=== PATIENT | male | born 1970 | race Two or more races ===

== ENCOUNTER 2017-01-24 13:21 | Emergency (ER) | payer SELFPAY ==
[2017-01-24 13:30] VITALS: BP 148/95
[2017-01-24] MEDS ORDERED: ALBUTEROL SULFATE 0.083% NEB 2.5 MG/3 ML AMPUL NEB ONE (13:51)
--- NOTE | 2017-01-24 13:57 | ER Document Report ---
HPI - HPI Patient complains to provider of: ear pain Pain Level: 4 Context: 46 yo male c/o right ear pain x 2 days. + cold s/s x several day. no fever. + cough, + wheeze Associated Symptoms: Nonproductive cough, Headache. denies: Fever, Nausea, Vomiting, Shortness of breath Exacerbated by: Denies Relieved by: Denies Similar symptoms previously: Yes Recently seen / treated by doctor: No - ROS Systems Reviewed and Negative: Yes All other systems reviewed and negative Past Medical History - General Information source: Patient - Social History Smoking Status: Current Every Day Smoker Cigarette use (# per day): Yes Smoking Education Provided: Yes - cessation recommended Frequency of alcohol use: None Drug Abuse: None Lives with: Family Family History: None - Medical History Medical History: Negative Vertical Provider Document - CONSTITUTIONAL Agree With Documented VS: Yes Exam Limitations: No Limitations General Appearance: WD/WN - uncomfortable - INFECTION CONTROL TRAVEL OUTSIDE OF THE [place] IN LAST 30 DAYS: No - HEENT HEENT: Tympanic Membrane Red - right TM erythematous, retracted, absent light reflex - NECK Neck: Normal Inspection, Supple - RESPIRATORY Respiratory: Wheezing O2 Sat by Pulse Oximetry: 95 - CARDIOVASCULAR Cardiovascular: Regular Rate, Regular Rhythm - NEURO Level of Consciousness: Awake, Alert - DERM Integumentary: Warm, Dry Course - Re-evaluation Re-evalutation: 01/24/17 13:55 physical findings c/w acute otitis media. will treat with oral antibiotic + wheezing bilat. Sat 95%. no increased work of breathing. will treat with inhaled bronchodilator 01/24/17 14:01 wheezing improved after neb treatment. I estimate there is low risk for acute coronary syndrome, repiratory failure, sepsis or meningitis this I consider the discharge disposition reasonable. The patient is agreeable with plan and stable for discharge - Vital Signs Vital signs: Temp Pulse Resp BP Pulse Ox 98 F 102 H 16 148/95 H 95 01/24/17 13:27 01/24/17 13:27 01/24/17 13:27 01/24/17 13:27 01/24/17 13:27 Discharge - Discharge Clinical Impression: Acute right otitis media, Wheezing Condition: Stable Disposition: HOME, SELF-CARE Instructions: Otitis Media ([facility]), Antibiotic Therapy ([facility]), Inhaled Bronchodilators ([facility]) Additional Instructions: I am treating your ear infection with oral antibiotics. please take all antibiotic as prescribed you may take Motrin 800mg for discomfort I am prescribing an inhaler for use as needed for wheezing please stop smoking follow up with your primary care if symptoms persist return to ER for any worsening Prescriptions: Albuterol Sulfate [Proair HFA Inhalation Aerosol 8.5 gm MDI] 1 puff IH Q4 PRN # 1 mdi PRN Reason: Amoxicillin 500 mg PO TID #21 tablet
== END 2017-01-24 14:15 | disposition home or self-care (01) ==
LOC: ER 13:21
DX: H66.91 Otitis media, unspecified, right ear (principal); R06.2 Wheezing; R51 Headache; F17.210 Nicotine dependence, cigarettes, uncomplicated
CPT/HCPCS: 94640; 99282

== ENCOUNTER 2017-01-26 20:48 | Emergency (ER) | payer SELFPAY ==
[2017-01-26 21:06] VITALS: BP 174/110
--- NOTE | 2017-01-26 22:20 | ER Document Report ---
HPI - HPI Pain Level: 4 Notes: Patient is a 46-year-old male no significant past medical history presents the ED complaining of worsening right ear pain since his visit 2 days ago. Patient states that he does continue to have nasal congestion/discharge, postnasal drip along with it. 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 Patient has not been using any [id number] cold medications for symptoms. Patient states that the pain does not radiate. He has not noticed any discharge from his ear. He denies any dizziness or tinnitus. Patient denies any drug allergies. Denies any headache, fever, head injury, neck pain, sore throat, chest pain, palpitations, syncope, cough, shortness of breath, wheeze, dyspnea, abdominal pain, nausea/vomiting/diarrhea, dysuria, hematuria, or rash. - ROS Notes: REVIEW OF SYSTEMS: CONSTITUTIONAL : Denies fever, chills, or sweats. Denies recent illness. EENT: see hpi CARDIOVASCULAR: Denies chest pain. Denies palpitations or racing or irregular heart beat. RESPIRATORY: Denies cough, cold, or chest congestion. Denies shortness of breath, difficulty breathing, or wheezing. GASTROINTESTINAL: Denies abdominal pain or distention. Denies nausea, vomiting , or diarrhea. GENITOURINARY: Denies difficulty urinating, painful urination, burning, frequency, blood in urine, or discharge. MUSCULOSKELETAL: Denies back or neck pain or stiffness. Denies joint pain or swelling. SKIN: Denies rash, lesions or sores. NEUROLOGICAL: Denies confusion or altered mental status. Denies passing out or loss of consciousness. Denies dizziness or lightheadedness. Denies headache. Denies weakness or paralysis or loss of use of either side. Denies problems with gait or speech. Denies sensory loss, numbness, or tingling. ALL OTHER SYSTEMS REVIEWED AND NEGATIVE. Dictation was performed using [employer] voice recognition software - EENT EENT: REPORTS: Ear Pain - right ear pain Past Medical History - Social History Smoking Status: Unknown if Ever Smoked Family History: None Patient has suicidal ideation: No Patient has homicidal ideation: No Renal/ Medical History: Denies: Hx Peritoneal Dialysis Vertical Provider Document - CONSTITUTIONAL Agree With Documented VS: Yes Notes: PHYSICAL EXAMINATION: GENERAL: Well-appearing, well-nourished and in no acute distress. A&ox4 HEAD: Atraumatic, normocephalic. EYES: Pupils equal round and reactive to light, extraocular movements intact, sclera anicteric, conjunctiva are normal. ENT: EAC clear b/l. Rt TM continues to be erythemic with bulging noted. Nares patent with mild erythema and without discharge. oropharynx clear without exudates. No tonsilar hypertrophy or erythema. Moist mucous membranes. No sinus tenderness. NECK: Normal range of motion, supple without lymphadenopathy. No rigidity/ meningismus. LUNGS: Breath sounds clear to auscultation bilaterally and equal. No wheezes rales or rhonchi. HEART: Regular rate and rhythm without murmurs, rubs, gallops. Extremities: No cyanosis, clubbing, or edema b/l. Peripheral pulses 2+. Capillary refill less than 3 seconds. NEUROLOGICAL: Cranial nerves grossly intact. Normal speech, normal gait. Normal sensory, motor exams PSYCH: Normal mood, normal affect. SKIN: Warm, Dry, normal turgor, no rashes or lesions noted. - INFECTION CONTROL TRAVEL OUTSIDE OF THE [place] IN LAST 30 DAYS: No - RESPIRATORY O2 Sat by Pulse Oximetry: 96 Course - Re-evaluation Re-evalutation: 01/26/17 22:17 Patient is an afebrile, well-hydrated, 46-year-old male who presents to the ED with otalgia of the right ear, infection versus eustachian tube dysfunction. Vitals are stable. PE is otherwise unremarkable. Patient is already on ibuprofen and amoxicillin. I recommend that the patient start taking Mucinex as well as nasal saline washes. Patient may consider Sudafed, but has to monitor blood pressure very closely. Encouraged other conservative measures as needed for symptoms. Recheck with your PCM in 3-5 days. Consider consult with ENT for ongoing/worsening symptoms. Return to the ED with any worsening/ concerning symptoms otherwise as reviewed in discharge. Patient is in agreement. - Vital Signs Vital signs: Temp Pulse Resp BP Pulse Ox 98.4 F 82 16 174/110 H 96 01/26/17 21:04 01/26/17 21:04 01/26/17 21:04 01/26/17 21:04 01/26/17 21:04 Discharge - Discharge Clinical Impression: Otalgia of right ear Condition: Stable Disposition: HOME, SELF-CARE Additional Instructions: Maintain adequate fluid intake Take meds as directed Nasal saline rinses Mucinex with or without Pseudafed OTC nasonex may help tylenol/ibuprofen as needed over the counter cold medication as needed for symptoms Humidified air may help for cough F/u: with your PCM in 3-5 days for a recheck Consider consult with ENT for ongoing/worsening symptoms Return to the ED with any fever, worsening pain, chest pain, palpitations, syncope, worsening ALONSO, neck pain/stiffness, shortness of breath, wheezing, drooling, trouble swallowing/breathing, abdominal pain, n/v/d, rash, or worsening/concerning symptoms otherwise. Forms: Elevated Blood Pressure Referrals: ADÁN ESQUIVEL DO [ASSOCIATE] - Follow up as needed
== END 2017-01-26 22:27 | disposition home or self-care (01) ==
LOC: ER 20:48
DX: H92.01 Otalgia, right ear (principal)
CPT/HCPCS: 99282

== ENCOUNTER 2019-01-16 07:53 | Emergency (ER) | payer MEDICAID ==
--- NOTE | 2019-01-16 08:54 | ER Document Report ---
ED General - General Chief Complaint: Bloody Stools Stated Complaint: BLOOD IN STOOL Time Seen by Provider: 01/16/19 08:16 TRAVEL OUTSIDE OF THE [place] IN LAST 30 DAYS: No - HPI Notes: Patient is a 48-year-old male with no significant past medical history aside from a past history of IV drug abuse and alcohol consumption of approximately 30 beers per week who presents complaining of having red blood in his stool yesterday. Patient states that he has not had any recurrence, but has not had a bowel movement. He does not have any pain associated. Denies drug allergies. He is able to eat and drink without difficulty. He is urinating normally. He is not on any blood thinning medications. He otherwise is feeling well. No recent illness. Denies any headache, fever, URI, sore throat, chest pain, palpitations, syncope, cough, shortness of breath, wheeze, dyspnea, abdominal pain, nausea/vomiting/diarrhea, urinary retention, dysuria, hematuria, back pain, or rash. - Related Data Allergies/Adverse Reactions: No Known Allergies Allergy (Verified 01/16/19 08:00) Past Medical History - Social History Smoking Status: Unknown if Ever Smoked Chew tobacco use (# tins/day): Yes Frequency of alcohol use: Social Drug Abuse: None Family History: None Patient has suicidal ideation: No Patient has homicidal ideation: No Renal/ Medical History: Denies: Hx Peritoneal Dialysis Review of Systems - Review of Systems -: Yes All other systems reviewed and negative Physical Exam - Vital signs Vitals: Temp Pulse Resp BP Pulse Ox 97.6 F 103 H 18 133/78 H 99 01/16/19 07:59 01/16/19 07:59 01/16/19 07:59 01/16/19 07:59 01/16/19 07:59 - Notes Notes: PHYSICAL EXAMINATION: GENERAL: Well-appearing, well-nourished and in no acute distress. HEAD: Atraumatic, normocephalic. EYES: Pupils equal round and reactive to light, extraocular movements intact, sclera anicteric, conjunctiva are normal. ENT: Nares patent and without discharge. oropharynx clear without exudates. No tonsilar hypertrophy or erythema. Moist mucous membranes. NECK: Normal range of motion, supple without lymphadenopathy LUNGS: Breath sounds clear to auscultation bilaterally and equal. No wheezes rales or rhonchi. HEART: Regular rate and rhythm without murmurs, rubs, gallops. ABDOMEN: Soft, nontender, nondistended abdomen. No guarding, no rebound. Normal bowel sounds present. No CVA tenderness bilaterally. Rectal: light brown stool noted. No melena or hematochezia. Guiac neg. Musculoskeletal: FROM to passive/active. Strength 5+/5. Extremities: No cyanosis, clubbing, or edema b/l. Peripheral pulses 2+. Capillary refill less than 3 seconds. NEUROLOGICAL: Normal speech, normal gait. PSYCH: Normal mood, normal affect. SKIN: Warm, Dry, normal turgor, no rashes or lesions noted. Course - Re-evaluation Re-evalutation: 01/16/19 10:02 Patient is an afebrile, well-hydrated, 48-year-old male who presents to the ED with report of red blood per rectum, without recurrence. Vitals are acceptable without any significant tachycardia, tachypnea, or hypoxia. PE is otherwise unremarkable. Pt's abd is soft and non-tender throughout. guiac negative. CBC, CMP unremarkable for any acute pathology. No other labs or imaging warranted at this time based on H&P. Patient is tolerating p.o. without difficulties and is nontoxic-appearing. Low suspicion/risk for acute appendicitis, bowel obstruction, acute cholecystitis, perforated diverticulitis, incarcerated hernia, pancreatitis, perforated ulcer, peritonitis, sepsis, testicular torsion, or other systemic emergent condition at this time. Patient is aware that his condition can change from initial presentation and he needs to monitor symptoms closely and seek medical attention if any acute changes. Recommended colonoscopy/consult with GI. Conservative measures otherwise for symptoms. Recheck with PCM in 2-3 days. Schedule consult with a slat basket maker machine. Return to the ED with any worsening/concerning symptoms otherwise as reviewed in discharge. Patient is in agreement. - Vital Signs Vital signs: Temp Pulse Resp BP Pulse Ox 97.6 F 103 H 18 133/78 H 99 01/16/19 07:59 01/16/19 07:59 01/16/19 07:59 01/16/19 07:59 01/16/19 07:59 - Laboratory Result Diagrams: 01/16/19 08:55 01/16/19 08:55 Laboratory results interpreted by me: 01/16/19 08:55 BUN 21 H Glucose 121 H Discharge - Discharge Clinical Impression: Blood in stool Condition: Stable Disposition: HOME, SELF-CARE Additional Instructions: Maintain adequate fluid and food intake [place] diet ([facility] Bananas, rice, apples, toast, etc Zofran as needed tylenol if needed Monitor for any worsening symptoms Make sure you are staying hydrated enough to urinate and have normal BM's Recheck with your PCM in 2-3 days Schedule consult with Gastroenterology for evaluation and possible colonoscopy* As reviewed blood in the stool is usually benign, but worst case scenario can be cancerous/tumor. Return to the ED with any worsening symptoms and/or development of fever, headache, chest pain, palpitations, syncope, shortness of breath, trouble breathing, abdominal pain, n/v/d, black stool, worsening bleeding, weakness, or other worsening symptoms that are concerning to you. Forms: Elevated Blood Pressure Referrals: COLETTE ROMANO MD [ACTIVE STAFF] - Follow up as needed GENEVIEVE COVARRUBIAS MD [ACTIVE STAFF] - Follow up as needed
[2019-01-16 09:15] LABS: ABSOLUTE BASOPHILS # (AUTO) 0.1 10^3/uL (0.0-0.2); ABSOLUTE EOSINOPHILS # (AUTO) 0.2 10^3/uL (0.0-0.6); ABSOLUTE LYMPHOCYTES (AUTO) 1.5 10^3/uL (0.5-4.7); ABSOLUTE MONOCYTES (AUTO) 0.3 10^3/uL (0.1-1.4); ABSOLUTE NEUT (AUTO) 3.8 10^3/uL (1.7-8.2); BASOPHILS % (AUTO) 1.1 % (0-2); EOSINOPHILS % (AUTO) 3.4 % (0-6); HEMATOCRIT 44.1 % (37.9-51.0); HEMOGLOBIN 15.2 g/dL (13.5-17.0); LYMPHOCYTES % (AUTO) 25.9 % (13-45); MEAN CORPUSCULAR HEMOGLOBIN 30.1 pg (27.0-33.4); MEAN CORPUSCULAR HGB CONC 34.4 g/dL (32.0-36.0); MEAN CORPUSCULAR VOLUME 88 fl (80-97); MONOCYTES % (AUTO) 5.8 % (3-13); PLATELET COUNT 316 10^3/uL (150-450); RED BLOOD COUNT 5.04 10^6/uL (4.35-5.55); RED CELL DISTRIBUTION WIDTH 13.2 % (11.5-14.0); SEGMENTED NEUTROPHILS % (AUTO) 63.8 % (42-78); TOTAL CELLS COUNTED % (AUTO) 100 %; WHITE BLOOD COUNT 5.9 10^3/uL (4.0-10.5)
[2019-01-16 09:33] LABS: ALBUMIN 4.3 g/dL (3.5-5.0); ALKALINE PHOSPHATASE 50 U/L (38-126); ANION GAP 8 (5-19); ASPARTATE AMINO TRANSFERASE 39 U/L (17-59); BILIRUBIN,DIRECT 0.2 mg/dL (0.0-0.4); BILIRUBIN,TOTAL 0.5 mg/dL (0.2-1.3); BLOOD UREA NITROGEN 21 mg/dL (7-20); CALCIUM 9.6 mg/dL (8.4-10.2); CARBON DIOXIDE 25 mmol/L (22-30); CHLORIDE 104 mmol/L (98-107); GLUCOSE 121 mg/dL (75-110); POTASSIUM 4.7 mmol/L (3.6-5.0); TOTAL PROTEIN 7.7 g/dL (6.3-8.2)
[2019-01-16 09:45] LABS: APPEARANCE,URINE CLEAR; BILIRUBIN,URINE NEGATIVE (NEGATIVE); COLOR,URINE YELLOW; GLUCOSE, URINE NEGATIVE (NEGATIVE); KETONES,URINE NEGATIVE (NEGATIVE); LEUKOCYTE ESTERASE,URINE NEGATIVE (NEGATIVE); NITRITE,URINE NEGATIVE (NEGATIVE); PROTEIN,URINE NEGATIVE (NEGATIVE); URINE SPECIFIC GRAVITY 1.018; UROBILINOGEN,URINE NEGATIVE mg/dL (<2.0)
[2019-01-16 10:17] VITALS: BP 136/88
== END 2019-01-16 10:16 | disposition home or self-care (01) ==
LOC: ER 07:53
DX: K92.1 Melena (principal)
CPT/HCPCS: 36415; 80053; 81001; 85025; 99284